=== PATIENT | male | born 1965 | race Caucasian/White ===

== ENCOUNTER 2016-12-26 14:43 | Outpatient (CLI) | payer OTHER | END 2016-12-26 14:44 | LOC: CARD 14:43 | PROVIDERS: ATTEND Internal Medicine Cardiovascular Disease | DX: E78.5 Hyperlipidemia, unspecified (principal) | CPT/HCPCS: 99214 ==

== ENCOUNTER 2019-01-24 09:03 | Outpatient (CLI) | payer OTHER ==
[2019-01-24 09:41] LABS: eGFR (Non-African) > 60
== END 2019-01-24 09:10 ==
LOC: LAB 09:03
PROVIDERS: ATTEND Family Medicine
DX: E78.00 Pure hypercholesterolemia, unspecified (principal)
CPT/HCPCS: 36415; 80053; 80061

== ENCOUNTER 2019-08-27 13:39 | Outpatient (CLI) | payer OTHER ==
--- NOTE | 2019-09-17 09:49 | Diagnostic Imaging Report ---
NEHEMIAS SIBLEY [facility] [id number] [facility] [address] [address] Report Submission Date: Aug 27, 2019 2:38:00 PM CDT Patient Study Name: JUAN TORRES Date: Aug 27, 2019 1:41:47 PM CDT Modality Type: DX Gender: M Description: SHOULDER 2 VIEWS OR MORE : 67 Institution: [facility] Physician: NEHEMIAS SIBLEY Examination: Plain film right shoulder History: RT SHOULDER, PAIN IN RT SHOULDER AFTER FALL INJURY X2 WEEKS AGO Comparison exams: None provided Findings: 3 views of the right shoulder demonstrates osteopenia. Mild degenerative spurring. Ossific density projecting inferior to the osseous glenoid. No soft tissue abnormality. Impression: Osteopenia and degenerative changes. Ossific density projecting inferiorly to the osseous glenoid - given reported history of injury, cannot exclude small avulsion. Consider obtaining shoulder CT for better osseous cortical evaluation. Electronically signed on Aug 27, 2019 2:38:00 PM CDT by: Stefan LOUIE
== END 2019-08-27 13:45 ==
LOC: RAD 13:39
PROVIDERS: ATTEND Family Medicine
DX: M25.511 Pain in right shoulder (principal)
CPT/HCPCS: 73030